=== PATIENT | female | born 1950 | race Two or more races ===

== ENCOUNTER 2017-05-17 08:39 | Outpatient (CLI) | payer OTHER | END 2017-05-17 08:47 | disposition home or self-care (01) | LOC: LAB 08:39 | DX: D64.89 Other specified anemias (principal); M81.0 Age-related osteoporosis without current pathological fracture; E55.9 Vitamin D deficiency, unspecified; E03.8 Other specified hypothyroidism; R30.0 Dysuria ==

== ENCOUNTER 2017-07-27 08:03 | Outpatient (CLI) | payer OTHER | END 2017-07-27 08:08 | disposition home or self-care (01) | LOC: LAB 08:03 | DX: E55.9 Vitamin D deficiency, unspecified (principal); E28.2 Polycystic ovarian syndrome ==

== ENCOUNTER 2018-01-02 14:10 | Outpatient (CLI) | payer OTHER | END 2018-01-02 15:44 | disposition home or self-care (01) | LOC: NUCLEAR 14:10 | DX: M81.0 Age-related osteoporosis without current pathological fracture (principal) ==

== ENCOUNTER 2018-03-27 10:10 | Outpatient (CLI) | payer OTHER | END 2018-03-27 10:24 | disposition home or self-care (01) | LOC: MAMO-SONO 10:10 | DX: Z12.31 Encounter for screening mammogram for malignant neoplasm of breast (principal); N60.11 Diffuse cystic mastopathy of right breast; N60.12 Diffuse cystic mastopathy of left breast ==

== ENCOUNTER 2019-04-02 14:12 | Outpatient (CLI) | payer OTHER | END 2019-04-02 14:15 | disposition home or self-care (01) | LOC: MAMO-SONO 14:12 | DX: Z12.31 Encounter for screening mammogram for malignant neoplasm of breast (principal); N60.11 Diffuse cystic mastopathy of right breast; N60.12 Diffuse cystic mastopathy of left breast ==

== ENCOUNTER 2020-01-06 11:06 | Outpatient (CLI) | payer OTHER | END 2020-01-06 11:20 | disposition home or self-care (01) | LOC: NUCLEAR 11:06 | PROVIDERS: ATTEND Internal Medicine Rheumatology | DX: M81.0 Age-related osteoporosis without current pathological fracture (principal) ==

== ENCOUNTER 2020-04-03 08:47 | Outpatient (CLI) | payer OTHER | END 2020-04-03 09:30 | disposition home or self-care (01) | LOC: MAMO-SONO 08:47 | PROVIDERS: ATTEND Surgery | DX: Z12.31 Encounter for screening mammogram for malignant neoplasm of breast (principal); N60.11 Diffuse cystic mastopathy of right breast; N60.12 Diffuse cystic mastopathy of left breast; N64.59 Other signs and symptoms in breast ==

== ENCOUNTER 2021-04-08 11:04 | Outpatient (CLI) | payer OTHER | END 2021-04-08 11:15 | disposition home or self-care (01) | LOC: MAMO-SONO 11:04 | PROVIDERS: ATTEND Surgery | DX: N60.11 Diffuse cystic mastopathy of right breast (principal); N60.12 Diffuse cystic mastopathy of left breast ==

== ENCOUNTER 2022-01-11 12:40 | Outpatient (CLI) | payer OTHER | END 2022-01-11 12:47 | disposition home or self-care (01) | LOC: NUCLEAR 12:40 | PROVIDERS: ATTEND Internal Medicine Rheumatology | DX: M81.0 Age-related osteoporosis without current pathological fracture (principal) ==

== ENCOUNTER 2022-04-13 10:53 | Outpatient (CLI) | payer OTHER | END 2022-04-13 11:02 | disposition home or self-care (01) | LOC: MAMO-SONO 10:53 | PROVIDERS: ATTEND Surgery | DX: N60.12 Diffuse cystic mastopathy of left breast (principal); N60.11 Diffuse cystic mastopathy of right breast ==

== ENCOUNTER 2024-02-06 09:19 | Outpatient (CLI) | payer OTHER | END 2024-02-06 09:20 | disposition home or self-care (01) | LOC: NUCLEAR 09:19 | DX: M81.0 Age-related osteoporosis without current pathological fracture (principal) ==

== ENCOUNTER → 2024-07-18 | Outpatient (CLI) | payer OTHER | END | disposition home or self-care (01) | LOC: SONOGRAMA 10:24 | PROVIDERS: ATTEND Pathology Anatomic Pathology & Clinical Pathology | DX: D34 Benign neoplasm of thyroid gland (principal); E07.89 Other specified disorders of thyroid; E04.2 Nontoxic multinodular goiter ==

== ENCOUNTER 2024-11-05 07:20 | Outpatient (CLI) | payer OTHER | END 2024-11-05 07:21 | disposition home or self-care (01) | LOC: NUCLEAR 07:20 | PROVIDERS: ATTEND Internal Medicine Cardiovascular Disease | DX: R07.9 Chest pain, unspecified (principal) | CPT/HCPCS: 78452; 93017; A9500 ==

== ENCOUNTER 2024-11-22 10:44 | Outpatient (CLI) | payer OTHER | END 2024-11-22 10:46 | disposition home or self-care (01) | LOC: MAMO-SONO 10:44 | DX: Z12.31 Encounter for screening mammogram for malignant neoplasm of breast (principal) ==